=== PATIENT | male | born 1965 | race Caucasian/White ===

== ENCOUNTER 2021-06-20 14:02 | Emergency (ER) | payer OTHER ==
[~2021-06-20] VITALS: Ht 162.6 cm; Wt 75.3 kg
[2021-06-20] MEDS ORDERED: TRIJARDY XR 101 EACH PO (14:25)
[2021-06-20] MEDS ORDERED: ALTACE10 MG PO (14:25)
[2021-06-20] MEDS ORDERED: NEURONTIN300 MG PO (14:26)
== END 2021-06-20 16:50 | disposition home or self-care (01) ==
LOC: ER 14:02
DX: S00.93XA Contusion of unspecified part of head, initial encounter (principal); W18.30XA Fall on same level, unspecified, initial encounter; Y93.9 Activity, unspecified; Y92.9 Unspecified place or not applicable; Y99.9 Unspecified external cause status

== ENCOUNTER 2021-10-03 10:40 | Outpatient (CLI) | payer OTHER ==
[~2021-10-03 10:40] MED LIST: ALTACE10 MG PO; NEURONTIN300 MG PO; TRIJARDY XR 101 EACH PO
== END 2021-10-03 10:50 | disposition home or self-care (01) ==
LOC: PPH VACUNA 10:40
PROVIDERS: ATTEND Emergency Medicine Pediatric Emergency Medicine
DX: Z23 Encounter for immunization (principal)